=== PATIENT | female | born 1975 | race Caucasian/White ===

== ENCOUNTER 2019-08-29 21:57 | Emergency (ER) | payer BC ==
[~2019-08-29] VITALS: Ht 170.2 cm; Wt 79.4 kg
--- NOTE | 2019-08-29 22:00 | NUR ---
PT [facility] BLS. TAKEN TO BED 8
[2019-08-29 22:04] VITALS: BP 104/66
--- NOTE | 2019-08-29 22:10 | NUR ---
44 Y/O FEMALE BIBA. PRESENTS TO ED FOR MEDICAL CLEARANCE. PARENTS CALLED EMS DUE TO PT DRINKING 10 SHOTS OF AYMILEX AND TAKING 4MG OF CLONIDINE. PT HAS HX OF SI. DENIES ANY SI AT THIS TIME. DENIES ANY AUDITORY/VISUAL HALLUCINATIONS. NO SOB/DIFFICULTY BREATHING NOTED. PT DENIES ANY PAIN. PT VSS. DENIES N/V/D. ERMD AWARE. WILL CONTINUE TO MONITOR.
--- NOTE | 2019-08-29 22:15 | NUR ---
Dr. Montague examining patient.
[2019-08-29 22:35] VITALS: BP 104/66
--- NOTE | 2019-08-29 22:35 | NUR ---
PT DISCHARGED WITH PAPERWORK. EDUCATED PT REGARDING D/C DIAGNOSIS AND INSTRUCTIONS. PT VERBALIZED UNDERSTANDING OF TEACHING. TOLD PT TO FOLLOW UP WITH PCP AND WHEN TO RETURN TO ED. PT AT STABLE CONDITION. ABLE TO AMBULATE WITH STEADY GAIT. ALL QUESTIONS ANSWERED.
== END 2019-08-29 22:35 | disposition home or self-care (01) ==
LOC: MED 21:57
DX: T50.991A Poisoning by other drugs, medicaments and biological substances, accidental (unintentional), initial encounter (principal); F10.129 Alcohol abuse with intoxication, unspecified; F17.210 Nicotine dependence, cigarettes, uncomplicated; F12.10 Cannabis abuse, uncomplicated; Z90.49 Acquired absence of other specified parts of digestive tract; X58.XXXA Exposure to other specified factors, initial encounter
CPT/HCPCS: 99281

== ENCOUNTER 2022-12-16 08:19 | Inpatient (IN) | payer BC ==
[~2022-12-16] VITALS: Ht 170.2 cm; Wt 118.4 kg
[2022-12-16 08:21] VITALS: BP 116/71
--- NOTE | 2022-12-16 08:26 | NUR ---
shortness for one week with congestion, denies medical history
--- NOTE | 2022-12-16 08:30 | NUR ---
bibs for sob and cough x 1 week. tachypneic @ 24. resp even and nonlabored. speaks f/c sentences. spo2 92 %. denies n,v,d,fever, chills, dizziness. aao x4. resp even and nonlabored. vss. ambulatory
[2022-12-16] MEDS ORDERED: IPRATROPIUM 0.02% 0.5 MG/2.5 ML NEBU INH ONE (08:35)
[2022-12-16] MEDS ORDERED: methylPREDNISolone SS 125 MG/2 ML VIAL IVP ONE (08:35)
[2022-12-16] MEDS ORDERED: MAG SULF 2000 MG/WATER PREMIX 50 ML IV ONE (08:35)
[2022-12-16] MEDS ORDERED: ALBUTEROL 0.083% 2.5 MG/3 ML NEBU INH ONE (08:35)
[2022-12-16 09:17] LABS: BASOPHILS # (AUTO) 0.1 K/uL (0.00-0.22); BASOPHILS % (AUTO) 0.7 % (0.0-2.0); EOSINOPHILS # (AUTO) 0.5 K/uL (0-0.4); EOSINOPHILS % (AUTO) 6.3 % (0.0-4.0); HEMATOCRIT 38.3 % (36-48); HEMOGLOBIN 12.4 g/dL (12.0-16.0); LYMPHOCYTES # (AUTO) 1.6 K/uL (2.5-16.5); LYMPHOCYTES % (AUTO) 22.3 % (20.5-51.1); MEAN CORPUSCULAR HEMOGLOBIN 30 pg (27-31); MEAN CORPUSCULAR HGB CONC 32 g/dL (33-37); MEAN CORPUSCULAR VOLUME 94.2 fL (80-94); MONOCYTES # (AUTO) 0.4 K/uL (0.8-1.0); MONOCYTES % (AUTO) 5.5 % (1.7-9.3); NEUTROPHILS # (AUTO) 4.7 K/uL (1.8-7.7); NEUTROPHILS % (AUTO) 65.2 % (42.2-75.2); PLATELET COUNT (AUTO) 297 K/uL (140-450); RED BLOOD CELL COUNT(AUTO) 4.07 MIL/uL (4.20-5.40); RED CELL DISTRIBUTION WIDTH 14.6 % (11.6-13.7); WHITE BLOOD COUNT (AUTO) 7.2 K/uL (4.8-10.8)
--- NOTE | 2022-12-16 09:17 | NUR ---
receiving breathing tx. spo2 98 %. received meds as ordered
[2022-12-16 09:27] LABS: ALBUMIN 2.8 g/dL (3.4-5.0); ANION GAP 9.5 (8-16); CARBON DIOXIDE 34.3 mmol/L (21-32); CREATININE 0.9 mg/dL (0.6-1.3); POTASSIUM 3.8 mmol/L (3.5-5.1); TOTAL BILIRUBIN 0.5 mg/dL (0.0-1.0)
[2022-12-16] MEDS ORDERED: cefTRIAXone 2,000 MG in DEXTROSE 5% 100 ML IV ONE (09:45)
--- NOTE | 2022-12-16 09:46 | NUR ---
called lab for blood cx draw. iv atb pending
[2022-12-16] MEDS ORDERED: ESCI20TA PO (09:58)
[2022-12-16] MEDS ORDERED: QUET200T PO (09:58)
[2022-12-16] MEDS ORDERED: METH-1550 PO (09:58)
[2022-12-16] MEDS ORDERED: ATOR10TA PO (09:58)
[2022-12-16] MEDS ORDERED: GABA300C PO (09:58)
[2022-12-16] MEDS ORDERED: POTASSIUM CHLORIDE 10 MEQ TABER PO PRN (10:05)
[2022-12-16] MEDS ORDERED: ONDANSETRON 4 MG/2 ML VIAL IM/IVP PRN (10:05)
[2022-12-16] MEDS ORDERED: DOCUSATE SODIUM 100 MG GELCAP PO PRN (10:05)
[2022-12-16] MEDS ORDERED: guaiFENesin DM 200/20 MG-10 ML 10 ML UDC PO PRN (10:05)
[2022-12-16] MEDS ORDERED: ZOLPIDEM 5 MG TAB PO PRN (10:05)
[2022-12-16] MEDS ORDERED: ACETAMINOPHEN 325 MG TAB PO PRN (10:05)
[2022-12-16] MEDS ORDERED: HYDROcodone/APAP 7.5/325 MG 1 TAB PO PRN (10:05)
[2022-12-16] MEDS ORDERED: cefTRIAXone 2,000 MG VIAL ONE (10:25)
--- NOTE | 2022-12-16 10:53 | NUR ---
Patient will be admitted to care of dr. shafer. Admited to TELE. Will go to room 105b. Belongings list completed. Report to charli anson .
[2022-12-16] MEDS: IPRATROPIUM 0.02% 0.5 MG/2.5 ML NEBU INH SCH ×2 (11:00→15:57)
[2022-12-16] MEDS: ALBUTEROL 0.083% 2.5 MG/3 ML NEBU INH SCH ×4 (11:00→20:39)
--- NOTE | 2022-12-16 11:00 | NUR ---
RECEIVED PATIENT ON WHEELCHAIR AOX4 FROM ED NURSE. ASSESSMENT AND INTERVIEW COMPLETE. PLAN OF CARE ESTABLISHED.
[2022-12-16] MEDS: methylPREDNISolone SS 125 MG/2 ML VIAL IVP SCH ×2 (13:12→20:47)
--- NOTE | 2022-12-16 13:30 | NUR ---
PATIENT CLAIMS TO BE A SMOKER, 1 PACK A DAY, AND REQUESTS FOR NICOTINE PATCH. INFORMED. NEW ORDERS GIVEN.
[2022-12-16] MEDS ORDERED: NICOTINE TRANSD SYS 14 MG/24 HR PATCH TD SCH (15:39)
[2022-12-16] MEDS ORDERED: ALBUTEROL 0.083% 2.5 MG/3 ML NEBU INH PRN (15:40)
[2022-12-16 16:00] VITALS: BP 130/86
[2022-12-16] MEDS: GABAPENTIN 300 MG CAP PO SCH (17:00)
--- NOTE | 2022-12-16 18:30 | NUR ---
PATIENT AND PATIENT'S FIANCE PROVIDE [facility] FOR PATIENT AND REQUEST FOR FOLLOW UP ON MEDICATION AVAILABILITY DURING PATIENT STAY IN THE HOSPITAL. INFORMATION NOTED.
--- NOTE | 2022-12-16 19:16 | NUR ---
RECEIVED REPORT FROM DAY SHIFT NURSE FOR CONTINUITY OF CARE. PT IS AWAKE AND STABLE AT THIS TIME, FIANCE AT BEDSIDE. A&O X4. CURRENTLY ON 5L NASAL CANULA WITH NO SIGNS OF ACUTE DISTRESS AT THIS TIME. POC WAS DISCUSSED. WILL MONITOR THROUGHOUT SHIFT.
--- NOTE | 2022-12-16 19:23 | NUR ---
ENDORSED PATIENT TO PM SHIFT NURSE FOR CONTINUITY OF CARE.
--- NOTE | 2022-12-16 22:38 | NUR ---
PT COMPLAINT OF DIFFICULTY FALLING ASLEEP. AMBIEN 5MG PRN WAS ADMINISTERED. PT TOLERATED WELL, WILL CONTINUE TO MONITOR.
[2022-12-17] VITALS: BP 120/61
[2022-12-17] MEDS: IPRATROPIUM 0.02% 0.5 MG/2.5 ML NEBU INH SCH ×3 (01:00→19:32)
[2022-12-17] MEDS ORDERED: ALBUTEROL 0.083% 2.5 MG/3 ML NEBU INH SCH (01:00)
--- NOTE | 2022-12-17 02:15 | NUR ---
PT CURRENTLY ASLEEP. RESPIRATIONS EVEN AND UNLABORED, NOTICEABLE CHEST RISE AND FALL. O2 SAT = 92% ON 3L NASAL CANULA, WILL CONTINUE TO MONITOR.
[2022-12-17] MEDS: methylPREDNISolone SS 125 MG/2 ML VIAL IVP SCH ×3 (06:00→20:35)
[2022-12-17 07:48] LABS: BASOPHILS % (AUTO) 0.4 % (0.0-2.0); HEMOGLOBIN 11.7 g/dL (12.0-16.0); LYMPHOCYTES # (AUTO) 0.4 K/uL (2.5-16.5); LYMPHOCYTES % (AUTO) 3.5 % (20.5-51.1); MEAN CORPUSCULAR HEMOGLOBIN 30 pg (27-31); MEAN CORPUSCULAR HGB CONC 33 g/dL (33-37); MONOCYTES # (AUTO) 0.2 K/uL (0.8-1.0); MONOCYTES % (AUTO) 1.9 % (1.7-9.3); NEUTROPHILS # (AUTO) 11.6 K/uL (1.8-7.7); NEUTROPHILS % (AUTO) 94.2 % (42.2-75.2); PLATELET COUNT (AUTO) 298 K/uL (140-450); RED BLOOD CELL COUNT(AUTO) 3.87 MIL/uL (4.20-5.40); RED CELL DISTRIBUTION WIDTH 14.3 % (11.6-13.7); WHITE BLOOD COUNT (AUTO) 12.4 K/uL (4.8-10.8)
[2022-12-17] MEDS: ALBUTEROL 0.083% 2.5 MG/3 ML NEBU INH SCH ×2 (07:49→19:32)
[2022-12-17 08:00] VITALS: BP 127/67
[2022-12-17 08:08] LABS: ANION GAP 10.2 (8-16); CARBON DIOXIDE 31.5 mmol/L (21-32); CREATININE 0.7 mg/dL (0.6-1.3); POTASSIUM 4.7 mmol/L (3.5-5.1)
[2022-12-17 08:20] LABS: MAGNESIUM 2.3 mg/dL (1.8-2.4); PHOSPHORUS 3.5 mg/dL (2.5-4.9)
--- NOTE | 2022-12-17 08:52 | NUR ---
CALLED COREY MILLER ([phone]) [facility] AND TALK TO NURSE DUNN FOR REQUEST FAX PATIENT [facility] PRESCRIPTION INFORMATION TO [facility] FOR CONTINUE PATIENT CARE NEEDS. WILL F/U
[2022-12-17] MEDS ORDERED: COMMUNICATION ORDER MC SCH (09:00)
[2022-12-17] MEDS ORDERED: NICOTINE TRANSD SYS 7 MG/24 HR PATCH TD SCH (09:00)
[2022-12-17] MEDS: GABAPENTIN 300 MG CAP PO SCH ×3 (09:00→17:04)
--- NOTE | 2022-12-17 10:16 | NUR ---
PATIENT HAS BEEN SCREENED AND CATEGORIZED MODERATE NUTRITION RISK. PATIENT WILL BE SEEN WITHIN 3-5 DAYS OF ADMISSION. REVIEWED BY TIM NASCIMENTO RD
[2022-12-17] MEDS: AZITHROMYCIN 500 MG in DEXTROSE 5% 250 ML IV SCH (10:25)
[2022-12-17] MEDS: ATORVASTATIN 20 MG TAB PO SCH (10:40)
[2022-12-17] MEDS: ESCITALOPRAM 20 MG TAB PO SCH (10:40)
[2022-12-17] MEDS: PANTOPRAZOLE 40 MG TABEC PO SCH (10:41)
[2022-12-17] MEDS: QUEtiapine FUMARATE 100 MG TAB PO SCH ×3 (10:41→20:16)
[2022-12-17] MEDS: NICOTINE TRANSD SYS 14 MG/24 HR PATCH TD SCH (10:42)
[2022-12-17] MEDS: METHADONE 10 MG/ML PO SCH (11:58)
[2022-12-17 16:00] VITALS: BP 127/65
--- NOTE | 2022-12-17 16:33 | NUR ---
DC PLANNING A 47 YEAR OLD FEMALE PATIENT ADMITTED FOR CC: SOB,AND DIFFICULTY BREATHING.HX OF SCHIZOPHRENIA,ANXIETY ,BRONCHITIS,OPIOD DEPENDENT AND SMOKING.CXR -NORMAL .PULMO FOLLOWING.CM TO FOLLOW.. Addendum: 12/18/22 at 1205 by Rocio Bloom RN DC PLANNING RECEIVED A CALL FROM [facility] [phone] SPOKE WITH TEOFILO STATED NO NOTIFICATION SEND TO [facility]. CM CLARIFIED THAT JARRETT FROM [facility] STATED BLUE SHIELD IS AT RISK, HOWEVER [facility] RECEIVED A CLINICAL AFTER PT GOT ADMITTED AND PER TO IT WILL BE A DENIAL. CM NOTIFIED PT IS STABLE FOR TRANSFER, PER TEOFILO IF PT WILL BE DC WITH IN A DAY OR 2, NO NEED FOR TRANSFER. CM TO FOLLOW
--- NOTE | 2022-12-17 18:24 | NUR ---
RECEIVE CALL FROM RADIOLOGY THAT PATIENT IS SCHEDULE ON CT SCAN WITH CONTRAST. CONSENT OBTAINED DINNER TRAY HOLD FOR PROCEDURE. ON-CALL MD INFORMED FOR CONSENT IS READY FOR SIGNATURE. WILL CONTINUE TO MONITOR
--- NOTE | 2022-12-17 19:16 | NUR ---
ENDORSE PATIENT IN STABLE CONDITION TO PM SHIFT NURSE. PENDING CT W/ CONTRAST LATER. ON-XI MD AWARE, DINNER TRAY HOLD FOR PROCEDURE. PATIENT'S [facility] ORDER VERIFIED W/ [facility] NURSE.
--- NOTE | 2022-12-17 19:32 | NUR ---
RECEIVED REPORT FROM DAY SHIFT NURSE FOR CONTINUITY OF CARE. PT TO HAVE CT W/ CONTRAST LATER. PENDING PHYSICIAN CONSENT. RESOURCE AGENT WAS NOTIFIED AND CONSENT FORM WAS SENT BY DAY SHIFT NURSE. WILL MONITOR FREQUENTLY THROUGHOUT SHIFT.
[2022-12-17] MEDS: guaiFENesin 600 MG TABER PO SCH (20:14)
--- NOTE | 2022-12-17 20:20 | NUR ---
SCHEDULED MEDICATIONS ADMINISTERED. PT TOLERATED WELL. PT EXPRESSED CONCERNS ABOUT PENDING CT W/CONTRAST. STATED HER SCHEDULED SEROQUEL MAKES HER VERY SLEEPY AND SHE WOULD PREFER TO HAVE THE PROCEDURE IN THE MORNING. RADIOLOGY MADE AWARE. STILL AWAITING PHYSICIAN SIGNED CONSENT. WILL CONTINUE TO MONITOR.
--- NOTE | 2022-12-17 22:00 | NUR ---
Patient's Plan of Care was discussed and reviewed with KATARZYNA STARK
[2022-12-18] VITALS: BP 116/59
--- NOTE | 2022-12-18 | NUR ---
PT IS ON SLEEP. CHEST RISE AND FALL SYMMETRICALLY NOTED. RESPIRATION IS EVEN AND UNLABORED. ALL SAFETY MEASURES IMPLEMENTED. BED IN LOW POSITION, BED WHEELS ON LOCK AND CALL LIGHT WITHIN REACH. Addendum: 12/19/22 at 0231 by Susan Redmond RN WRONG DATE AND TIME
[2022-12-18] MEDS: IPRATROPIUM 0.02% 0.5 MG/2.5 ML NEBU INH SCH ×4 (02:54→19:29)
[2022-12-18] MEDS: ALBUTEROL 0.083% 2.5 MG/3 ML NEBU INH SCH ×4 (02:54→19:28)
[2022-12-18] MEDS: methylPREDNISolone SS 125 MG/2 ML VIAL IVP SCH ×3 (04:58→20:14)
--- NOTE | 2022-12-18 06:13 | NUR ---
PT STABLE AT THIS TIME. WILL ENDORSE TO DAY SHIFT NURSE FOR CONTINUITY OF CARE.
[2022-12-18 07:08] LABS: HEMATOCRIT 35.7 % (36-48); HEMOGLOBIN 11.5 g/dL (12.0-16.0); LYMPHOCYTES # (AUTO) 0.6 K/uL (2.5-16.5); LYMPHOCYTES % (AUTO) 4.2 % (20.5-51.1); MEAN CORPUSCULAR HEMOGLOBIN 30 pg (27-31); MEAN CORPUSCULAR HGB CONC 32 g/dL (33-37); MEAN CORPUSCULAR VOLUME 93.6 fL (80-94); MONOCYTES # (AUTO) 0.3 K/uL (0.8-1.0); MONOCYTES % (AUTO) 2.1 % (1.7-9.3); NEUTROPHILS # (AUTO) 13.2 K/uL (1.8-7.7); NEUTROPHILS % (AUTO) 93.7 % (42.2-75.2); PLATELET COUNT (AUTO) 276 K/uL (140-450); RED BLOOD CELL COUNT(AUTO) 3.82 MIL/uL (4.20-5.40); RED CELL DISTRIBUTION WIDTH 14.4 % (11.6-13.7); WHITE BLOOD COUNT (AUTO) 14.1 K/uL (4.8-10.8)
[2022-12-18 07:26] LABS: CARBON DIOXIDE 30.9 mmol/L (21-32); CREATININE 0.7 mg/dL (0.6-1.3); POTASSIUM 4.9 mmol/L (3.5-5.1)
--- NOTE | 2022-12-18 07:30 | NUR ---
RECEIVED REPORT FROM HOG SCALDER NURSE FOR CONTINUITY OF CARE, POC DISCUSSED. PT IS RESTING IN BED ON 2LNC WITH CHEST RISING AND FALLING EVEN AND UNLABORED. ACUTE S/S OF DISTRESS. ALL SAFETY MEASURES IN PLACE, CALL LIGHT WITHIN REACH.
[2022-12-18 07:55] LABS: MAGNESIUM 2.3 mg/dL (1.8-2.4); PHOSPHORUS 3.6 mg/dL (2.5-4.9)
[2022-12-18 08:00] VITALS: BP 128/67
[2022-12-18] MEDS: AZITHROMYCIN 500 MG in DEXTROSE 5% 250 ML IV SCH (09:00)
--- NOTE | 2022-12-18 09:16 | NUR ---
DC PLANNING ASSESSMENT COMPLETE PLEASE REFER TO ASSESSMENT FOR ADDITIONAL DETAILS PT REPORTS DC PLAN IS TO RETURN HOME WITH FAMILY PROVIDING TRANSPORATION, WHEN MEDICALLY STABLE. Addendum: 12/18/22 at 0917 by Maxwell MURPHY Amended: Links added.
[2022-12-18] MEDS ORDERED: CRUSHER, PILL MC ONE (09:19)
[2022-12-18] MEDS: PANTOPRAZOLE 40 MG TABEC PO SCH (09:23)
[2022-12-18] MEDS: guaiFENesin 600 MG TABER PO SCH ×2 (09:24→20:15)
[2022-12-18] MEDS: ATORVASTATIN 20 MG TAB PO SCH (09:24)
[2022-12-18] MEDS: NICOTINE TRANSD SYS 14 MG/24 HR PATCH TD SCH (09:25)
[2022-12-18] MEDS: METHADONE 10 MG/ML PO SCH (09:26)
[2022-12-18] MEDS: ESCITALOPRAM 20 MG TAB PO SCH (09:27)
[2022-12-18] MEDS: GABAPENTIN 300 MG CAP PO SCH ×3 (09:27→16:53)
--- NOTE | 2022-12-18 14:58 | NUR ---
DC PLANNING ADMITTED A 47 YEAR OLD FEMALE PATIENT 12/16/22 FOR COPD EXACERBATION WITH COMPLAINTS OF SOB AND DIFFICULTY BREATHING.WITH HX OF SCHIZOPHRENIA,ANXIETY,BRONCHITIS ,OPIOID DEPENDENT AND SMOKING.ON DAILY ERYTHROMYCIN.CXR/ UNREMARKABLE.CHEST/THORAX ANGIO NEGATIVE FOR PE.DC PLAN HOME WITH PENDING DISCHARGE ORDER.
[2022-12-18 16:00] VITALS: BP 126/70
--- NOTE | 2022-12-18 19:01 | NUR ---
PT ENDORSED TO BOTTOM TURNING LATHE TURNER NURSE IN STABLE CONDITION.
--- NOTE | 2022-12-18 19:02 | NUR ---
RECEIVED PT FROM MORNING SHIFT NURSE. PT IS AOX4 AMBULATORY, ABLE TO FOLLOW COMMANDS AND ABLE TO VERBALIZE NEEDS. PT IS ON 3L NC AND ON REGULAR DIET. PT HAS LEFT AC GAUGE 18, SALINE LOCK. PT SKIN IS INTACT. NO COMPLAIN OF PAIN AT THIS THIS TIME. NO S/S OF RESPIRATORY DISTRESS NOTED. ALL SAFETY MEASURES IMPLEMENTED. BED IN LOW POSITION, BED WHEELS ON LOCK AND CALL LIGHT WITHIN REACH.
[2022-12-18] MEDS: QUEtiapine FUMARATE 100 MG TAB PO SCH (20:15)
--- NOTE | 2022-12-18 20:15 | NUR ---
ALL SCHEDULED AND PRESCRIBED MEDICATION WAS GIVEN TO PT PER MD ORDER. ALL SAFETY MEASURES IMPLEMENTED. BED IN LOW POSITION, BED WHEELS ON LOCK AND CALL LIGHT WITHIN REACH.
[2022-12-19] VITALS: BP 106/55
--- NOTE | 2022-12-19 | NUR ---
PT IS ON SLEEP. CHEST RISE AND FALL SYMMETRICALLY NOTED. RESPIRATION IS EVEN AND UNLABORED. ALL SAFETY MEASURES IMPLEMENTED. BED IN LOW POSITION, BED WHEELS ON LOCK AND CALL LIGHT WITHIN REACH.
[2022-12-19] MEDS: ALBUTEROL 0.083% 2.5 MG/3 ML NEBU INH SCH ×4 (01:00→19:19)
[2022-12-19] MEDS: IPRATROPIUM 0.02% 0.5 MG/2.5 ML NEBU INH SCH ×4 (01:00→19:19)
--- NOTE | 2022-12-19 02:00 | NUR ---
CHECKED THE PT, STILL ON SLEEP. CHEST RISE AND FALL SYMMETRICALLY NOTED. RESPIRATION IS EVEN AND UNLABORED. ALL SAFETY MEASURES IMPLEMENTED. BED IN LOW POSITION, BED WHEELS ON LOCK AND CALL LIGHT WITHIN REACH.
--- NOTE | 2022-12-19 04:00 | NUR ---
PUT THE PT BACK ON 3L NC DURE TO PT SATING AT 88-89%. NOW PT IS SATING AT 95% ALL SAFETY MEASURES IMPLEMENTED. BED IN LOW POSITION, BED WHEELS ON LOCK AND CALL LIGHT WITHIN REACH.
[2022-12-19] MEDS: methylPREDNISolone SS 125 MG/2 ML VIAL IVP SCH (04:34)
[2022-12-19 06:42] LABS: HEMATOCRIT 34.9 % (36-48); HEMOGLOBIN 11.3 g/dL (12.0-16.0); LYMPHOCYTES # (AUTO) 0.6 K/uL (2.5-16.5); LYMPHOCYTES % (AUTO) 5.4 % (20.5-51.1); MEAN CORPUSCULAR HEMOGLOBIN 30 pg (27-31); MEAN CORPUSCULAR HGB CONC 32 g/dL (33-37); MEAN CORPUSCULAR VOLUME 93.1 fL (80-94); MONOCYTES # (AUTO) 0.3 K/uL (0.8-1.0); NEUTROPHILS # (AUTO) 10.6 K/uL (1.8-7.7); NEUTROPHILS % (AUTO) 91.6 % (42.2-75.2); PLATELET COUNT (AUTO) 255 K/uL (140-450); RED BLOOD CELL COUNT(AUTO) 3.75 MIL/uL (4.20-5.40); RED CELL DISTRIBUTION WIDTH 14.4 % (11.6-13.7); WHITE BLOOD COUNT (AUTO) 11.5 K/uL (4.8-10.8)
[2022-12-19 06:53] LABS: ANION GAP 10.3 (8-16); CARBON DIOXIDE 32.3 mmol/L (21-32); CREATININE 0.7 mg/dL (0.6-1.3); POTASSIUM 4.6 mmol/L (3.5-5.1)
[2022-12-19 07:00] LABS: MAGNESIUM 2.3 mg/dL (1.8-2.4); PHOSPHORUS 3.2 mg/dL (2.5-4.9)
--- NOTE | 2022-12-19 07:08 | NUR ---
PT IS STABLE. ENDORSED PT TO MORNING SHIFT NURSE FOR CONTINUITY OF CARE.
--- NOTE | 2022-12-19 07:30 | NUR ---
RECEIVED REPORT FROM TAX COMPLIANCE REPRESENTATIVE NURSE, ALL NIGHT EVENTS DISCUSSED. REPORTED PT DESATURATES ON ROOM AIR WHEN SLEEPING, PT CURRENTLY RESTING IN BED WITH CHEST RISING AND FALLING EVEN AND UNLABORED. NO S/S OF DISTRESS. ALL SAFETY MEASURES IN PLACE, CALL LIGHT WITHIN REACH.
[2022-12-19 08:00] VITALS: BP 136/61
[2022-12-19] MEDS: AZITHROMYCIN 500 MG in DEXTROSE 5% 250 ML IV SCH (09:00)
[2022-12-19] MEDS: ESCITALOPRAM 20 MG TAB PO SCH (09:06)
[2022-12-19] MEDS: PANTOPRAZOLE 40 MG TABEC PO SCH (09:06)
[2022-12-19] MEDS: guaiFENesin 600 MG TABER PO SCH ×2 (09:06→20:08)
[2022-12-19] MEDS: ATORVASTATIN 20 MG TAB PO SCH (09:06)
[2022-12-19] MEDS: GABAPENTIN 300 MG CAP PO SCH ×3 (09:07→17:03)
[2022-12-19] MEDS: NICOTINE TRANSD SYS 14 MG/24 HR PATCH TD SCH (09:08)
[2022-12-19] MEDS: METHADONE 10 MG/ML PO SCH (09:09)
[2022-12-19 16:00] VITALS: BP 121/73
--- NOTE | 2022-12-19 19:20 | NUR ---
RECEIVED PT FROM MORNING SHIFT NURSE. PT IS AOX4 AMBULATORY, ABLE TO FOLLOW COMMANDS AND ABLE TO VERBALIZE NEEDS. PT IS ON ROOM AND ON REGULAR DIET. PT HAS LEFT AC GAUGE 18, SALINE LOCK. PT SKIN IS INTACT. NO COMPLAIN OF PAIN AT THIS THIS TIME. NO S/S OF RESPIRATORY DISTRESS NOTED. ALL SAFETY MEASURES IMPLEMENTED. BED IN LOW POSITION, BED WHEELS ON LOCK AND CALL LIGHT WITHIN REACH.
[2022-12-19] MEDS: QUEtiapine FUMARATE 100 MG TAB PO SCH (20:09)
--- NOTE | 2022-12-19 22:00 | NUR ---
WARM BLANKET WAS GIVEN TO PT. NO S/S OF RESPIRATORY DISTRESS NOTED. ALL SAFETY MEASURES IMPLEMENTED. BED IN LOW POSITION, BED WHEELS ON LOCK AND CALL LIGHT WITHIN REACH.
[2022-12-20] VITALS: BP 131/68
--- NOTE | 2022-12-20 | NUR ---
CHANGED PT'S DIAPER AND LINEN. PT WAS ALSO TURNED TO OTHER SIDE. NO S/S OF RESPIRATORY DISTRESS NOTED. ALL SAFETY MEASURES IMPLEMENTED. BED IN LOW POSITION, BED WHEELS ON LOCK AND CALL LIGHT WITHIN REACH. Addendum: 12/20/22 at 0410 by Susan Redmond RN WRONG PT.
[2022-12-20] MEDS: ALBUTEROL 0.083% 2.5 MG/3 ML NEBU INH SCH ×3 (01:00→12:33)
[2022-12-20] MEDS: IPRATROPIUM 0.02% 0.5 MG/2.5 ML NEBU INH SCH ×3 (01:00→12:32)
--- NOTE | 2022-12-20 02:00 | NUR ---
PT IS ON SLEEP. CHEST RISE AND FALL SYMMETRICALLY NOTED. RESPIRATION IS EVEN AND UNLABORED. NO S/S OF RESPIRATORY DISTRESS NOTED. ALL SAFETY MEASURES IMPLEMENTED. BED IN LOW POSITION, BED WHEELS ON LOCK AND CALL LIGHT WITHIN REACH.
--- NOTE | 2022-12-20 04:00 | NUR ---
CHECKED THE PT, STILL ON SLEEP. CHEST RISE AND FALL SYMMETRICALLY NOTED. RESPIRATION IS EVEN AND UNLABORED. NO S/S OF RESPIRATORY DISTRESS NOTED. ALL SAFETY MEASURES IMPLEMENTED. BED IN LOW POSITION, BED WHEELS ON LOCK AND CALL LIGHT WITHIN REACH.
[2022-12-20 07:02] LABS: BASOPHILS % (AUTO) 0.1 % (0.0-2.0); EOSINOPHILS % (AUTO) 0.2 % (0.0-4.0); HEMATOCRIT 35.3 % (36-48); HEMOGLOBIN 11.5 g/dL (12.0-16.0); LYMPHOCYTES # (AUTO) 1.8 K/uL (2.5-16.5); LYMPHOCYTES % (AUTO) 19.4 % (20.5-51.1); MEAN CORPUSCULAR HEMOGLOBIN 30 pg (27-31); MEAN CORPUSCULAR HGB CONC 33 g/dL (33-37); MEAN CORPUSCULAR VOLUME 93.2 fL (80-94); MONOCYTES # (AUTO) 0.7 K/uL (0.8-1.0); MONOCYTES % (AUTO) 7.2 % (1.7-9.3); NEUTROPHILS # (AUTO) 6.6 K/uL (1.8-7.7); NEUTROPHILS % (AUTO) 73.1 % (42.2-75.2); PLATELET COUNT (AUTO) 227 K/uL (140-450); RED BLOOD CELL COUNT(AUTO) 3.79 MIL/uL (4.20-5.40); RED CELL DISTRIBUTION WIDTH 14.4 % (11.6-13.7); WHITE BLOOD COUNT (AUTO) 9.1 K/uL (4.8-10.8)
--- NOTE | 2022-12-20 07:19 | NUR ---
PT IS STABLE. ENDORSED PT TO MORNING SHIFT NURSE FOR CONTINUITY OF CARE.
[2022-12-20 08:46] LABS: PHOSPHORUS 2.9 mg/dL (2.5-4.9)
[2022-12-20] MEDS ORDERED: predniSONE 20 MG TAB PO SCH (09:00)
[2022-12-20 09:14] LABS: ANION GAP 11.3 (8-16); CARBON DIOXIDE 31.1 mmol/L (21-32); CREATININE 0.7 mg/dL (0.6-1.3); POTASSIUM 3.4 mmol/L (3.5-5.1)
[2022-12-20 10:39] VITALS: BP 124/75
[2022-12-20] MEDS ORDERED: PRED20TA5 PO (11:50)
[2022-12-20] MEDS ORDERED: LEVO-481 PO (11:50)
[2022-12-20] MEDS ORDERED: ATRMDI IH (11:51)
[2022-12-20] MEDS ORDERED: ALBU0.0912 INH (11:51)
--- NOTE | 2022-12-20 20:40 | NUR ---
0800 RECEIVED IN NO ACUTE DISTRESS. pT STABLE, ALL SAFETY MEASURES IN PLACE. DENIES DISCOMFORT
--- NOTE | 2022-12-20 20:41 | NUR ---
1435 PATIENT DISCHARGED AT THIS TIME D/C TEACHING GIVEN AND EXPRESSED UNDERSTANDING. sPOUSE HERE AND ACCOMPANIED PATIENT.
== END 2022-12-20 13:15 | disposition home or self-care (01) | DRG 720 ==
LOC: MED 08:19 → MTU 10:07
PROVIDERS: ADMIT Student in an Organized Health Care Education/Training Program; ATTEND Student in an Organized Health Care Education/Training Program
DX: A41.9 Sepsis, unspecified organism (principal); J96.00 Acute respiratory failure, unspecified whether with hypoxia or hypercapnia; E44.0 Moderate protein-calorie malnutrition; J44.0 Chronic obstructive pulmonary disease with (acute) lower respiratory infection; J18.9 Pneumonia, unspecified organism; E83.51 Hypocalcemia; F25.1 Schizoaffective disorder, depressive type; J44.1 Chronic obstructive pulmonary disease with (acute) exacerbation; F11.20 Opioid dependence, uncomplicated; J20.9 Acute bronchitis, unspecified; D64.9 Anemia, unspecified; Z68.41 Body mass index [BMI] 40.0-44.9, adult; F41.9 Anxiety disorder, unspecified; E78.5 Hyperlipidemia, unspecified; J43.9 Emphysema, unspecified; D72.829 Elevated white blood cell count, unspecified; Z90.49 Acquired absence of other specified parts of digestive tract; Z20.822 Contact with and (suspected) exposure to COVID-19; Z72.0 Tobacco use
CPT/HCPCS: 36415; 71045; 71275; 80048; 80053; 83735; 83880; 84100; 84484; 85025; 87081; 93005; 94640; 96374; 96375; 99285; J0456; J0696; J2930; J3475; J7060; J7512; J7613; J7644; Q0092; Q9967

== ENCOUNTER 2023-04-23 20:56 | Inpatient (IN) | payer BC ==
[~2023-04-23] VITALS: Ht 172.7 cm; Wt 117.9 kg
[~2023-04-23 20:56] MED LIST: ALBU0.0912 INH; ATOR10TA PO; ATRMDI IH; ESCI20TA PO; GABA300C PO; LEVO-481 PO; METH-1550 PO; PRED20TA5 PO; QUET200T PO
[2023-04-23 21:00] VITALS: BP 109/71; PULSE 115; RESP 17; TEMP 98; O2SAT 77
[2023-04-23] MEDS ORDERED: IPRATROPIUM 0.02% 0.5 MG/2.5 ML NEBU INH ONE (21:15)
[2023-04-23] MEDS ORDERED: methylPREDNISolone SS 125 MG/2 ML VIAL IVP ONE (21:15)
[2023-04-23] MEDS ORDERED: ALBUTEROL 0.083% 2.5 MG/3 ML NEBU INH ONE (21:15)
[2023-04-23 21:23] VITALS: PULSE 100; RESP 20; O2SAT 92; O2SAT 93
[2023-04-23 21:43] LABS: HEMATOCRIT 39.3 % (36-48); HEMOGLOBIN 12.7 g/dL (12.0-16.0); MEAN CORPUSCULAR HEMOGLOBIN 30 pg (27-31); MEAN CORPUSCULAR HGB CONC 32 g/dL (33-37); PLATELET COUNT (AUTO) 281 K/uL (140-450); RED BLOOD CELL COUNT(AUTO) 4.23 MIL/uL (4.20-5.40); WHITE BLOOD COUNT (AUTO) 9.2 K/uL (4.8-10.8)
[2023-04-23 21:52] LABS: CALCIUM 8.2 mg/dL (8.5-10.1); CARBON DIOXIDE 32.5 mmol/L (21-32); POTASSIUM 4.5 mmol/L (3.5-5.1)
[2023-04-23 21:53] LABS: BASOPHILS % (MANUAL) 0 % (0-2); EOSINOPHILS % (MANUAL) 0 % (0-4); LYMPHOCYTES % (MANUAL) 9 % (20-46); MONOCYTES % (MANUAL) 3 % (5-12); SMUDGE CELLS FEW
[2023-04-23 22:06] VITALS: RESP 20; O2SAT 99
[2023-04-24] VITALS (16 sets, daily range): BP systolic 111–149; BP diastolic 64–87; PULSE 53–97; RESP 16–22; TEMP 97.3–98.6; O2SAT 84–98
[2023-04-24] MEDS ORDERED: cefTRIAXone 1,000 MG VIAL ONE (00:32)
[2023-04-24] MEDS ORDERED: HYDROcodone/APAP 7.5/325 MG 1 TAB PO PRN (01:10)
[2023-04-24] MEDS ORDERED: ONDANSETRON 4 MG/2 ML VIAL IM/IVP PRN (01:10)
[2023-04-24] MEDS ORDERED: ZOLPIDEM 5 MG TAB PO PRN (01:10)
[2023-04-24] MEDS ORDERED: POTASSIUM CHLORIDE 10 MEQ TABER PO PRN (01:10)
[2023-04-24] MEDS ORDERED: guaiFENesin DM 200/20 MG-10 ML 10 ML UDC PO PRN (01:10)
[2023-04-24] MEDS ORDERED: DOCUSATE SODIUM 100 MG GELCAP PO PRN (01:10)
[2023-04-24] MEDS ORDERED: ACETAMINOPHEN 325 MG TAB PO PRN (01:10)
[2023-04-24 01:45] LABS: APPEARANCE,URINE CLOUDY (CLEAR); BILIRUBIN,URINE NEGATIVE (NEGATIVE); BLOOD, URINE 3+ (NEGATIVE); COLOR,URINE YELLOW (YELLOW); LEUKOCYTE ESTERASE ,URINE NEGATIVE (NEGATIVE); NITRITE, URINE NEGATIVE (NEGATIVE); PROTEIN,URINE 2+ (NEGATIVE); UGLUCOSE NEGATIVE (NEGATIVE); UROBILINOGEN,URINE 0.2 EU/dL (0.2 - 1)
[2023-04-24 01:54] LABS: BACTERIA,URINE >30 (MANY) /HPF (None Seen); WBC,URINE 0-5 /HPF (0-5)
[2023-04-24 01:55] LABS: MUCUS,URINE 1+ /LPF (None Seen); SQUAMOUS EPITHELIAL CELL,UR 4-10 (MOD) /LPF (0-3 (FEW))
[2023-04-24 02:25] LABS: AMPHETAMINE, URINE NEGATIVE ng/ml (NEG <=1000); BARBITURATE, URINE NEGATIVE ng/ml (NEG <=200); BENZODIAZEPINE, URINE POSITIVE ng/mL (NEG <=200); COCAINE, URINE POSITIVE ng/mL (NEG <=300)
[2023-04-24 02:26] LABS: CANNABINOID, URINE NEGATIVE ng/mL (NEG <=50); OPIATE, URINE NEGATIVE ng/mL (NEG <=2000); PHENCYCLIDINE SCREEN,URINE NEGATIVE ng/mL (NEG <=25)
[2023-04-24 05:13] LABS: BASOPHILS % (AUTO) 0.2 % (0.0-2.0); HEMATOCRIT 38.2 % (36-48); HEMOGLOBIN 12.4 g/dL (12.0-16.0); LYMPHOCYTES # (AUTO) 0.6 K/uL (2.5-16.5); LYMPHOCYTES % (AUTO) 6.5 % (20.5-51.1); MEAN CORPUSCULAR HEMOGLOBIN 30 pg (27-31); MEAN CORPUSCULAR HGB CONC 33 g/dL (33-37); MEAN CORPUSCULAR VOLUME 92.8 fL (80-94); MONOCYTES # (AUTO) 0.1 K/uL (0.8-1.0); MONOCYTES % (AUTO) 1.2 % (1.7-9.3); NEUTROPHILS # (AUTO) 8.2 K/uL (1.8-7.7); NEUTROPHILS % (AUTO) 92.1 % (42.2-75.2); PLATELET COUNT (AUTO) 242 K/uL (140-450); RED BLOOD CELL COUNT(AUTO) 4.11 MIL/uL (4.20-5.40); RED CELL DISTRIBUTION WIDTH 15.8 % (11.6-13.7); WHITE BLOOD COUNT (AUTO) 8.9 K/uL (4.8-10.8)
[2023-04-24] MEDS: NACL 0.9% 1,000 ML IV SCH ×2 (05:25→17:48)
[2023-04-24 05:51] LABS: ANION GAP 12.1 (8-16); CALCIUM 8.3 mg/dL (8.5-10.1); CARBON DIOXIDE 31.9 mmol/L (21-32); TOTAL BILIRUBIN 0.3 mg/dL (0.0-1.0); TOTAL PROTEIN, SERUM 6.8 g/dL (6.4-8.2)
[2023-04-24] MEDS: LEVOFLOXACIN 500 MG/D5W PREMIX 100 ML IV SCH (09:18)
[2023-04-24] MEDS: DEXAMETHASONE 4 MG/ML VIAL IVP SCH (09:21)
[2023-04-24] MEDS: PANTOPRAZOLE 40 MG TABEC PO SCH (09:21)
[2023-04-24] MEDS ORDERED: AZIT250T4 PO (10:19)
[2023-04-24] MEDS ORDERED: PRED20TA5 PO (10:19)
[2023-04-24] MEDS ORDERED: ALBU3SOL83 IH (10:19)
[2023-04-24] MEDS: ALBUTEROL SULFATE/IPRATROPIU 3 ML SOL IH SCH ×4 (10:25→22:56)
[2023-04-24] MEDS: METHADONE HCL ORAL SOLN 10 MG/ML SOLN PO SCH (11:13)
[2023-04-25] VITALS (7 sets, daily range): BP systolic 145–147; BP diastolic 85–91; PULSE 60–74; RESP 17–20; TEMP 96.8–97.5; O2SAT 85–100
[2023-04-25] MEDS: ALBUTEROL SULFATE/IPRATROPIU 3 ML SOL IH SCH ×3 (02:13→12:35)
[2023-04-25 04:46] LABS: BASOPHILS % (AUTO) 0.1 % (0.0-2.0); HEMATOCRIT 35.3 % (36-48); HEMOGLOBIN 11.4 g/dL (12.0-16.0); LYMPHOCYTES # (AUTO) 0.9 K/uL (2.5-16.5); LYMPHOCYTES % (AUTO) 7.6 % (20.5-51.1); MEAN CORPUSCULAR HEMOGLOBIN 30 pg (27-31); MEAN CORPUSCULAR HGB CONC 32 g/dL (33-37); MEAN CORPUSCULAR VOLUME 93.2 fL (80-94); MONOCYTES # (AUTO) 0.9 K/uL (0.8-1.0); MONOCYTES % (AUTO) 7.5 % (1.7-9.3); NEUTROPHILS # (AUTO) 9.7 K/uL (1.8-7.7); NEUTROPHILS % (AUTO) 84.8 % (42.2-75.2); PLATELET COUNT (AUTO) 262 K/uL (140-450); RED BLOOD CELL COUNT(AUTO) 3.79 MIL/uL (4.20-5.40); RED CELL DISTRIBUTION WIDTH 16.6 % (11.6-13.7); WHITE BLOOD COUNT (AUTO) 11.5 K/uL (4.8-10.8)
[2023-04-25 05:24] LABS: ANION GAP 7.8 (8-16); CALCIUM 8.3 mg/dL (8.5-10.1); CARBON DIOXIDE 35.4 mmol/L (21-32); CREATININE 0.7 mg/dL (0.6-1.3); POTASSIUM 4.2 mmol/L (3.5-5.1); TOTAL BILIRUBIN 0.2 mg/dL (0.0-1.0); TOTAL PROTEIN, SERUM 6.4 g/dL (6.4-8.2)
[2023-04-25] MEDS: PANTOPRAZOLE 40 MG TABEC PO SCH (08:21)
[2023-04-25] MEDS: METHADONE HCL ORAL SOLN 10 MG/ML SOLN PO SCH (08:29)
[2023-04-25] MEDS ORDERED: AZITHROMYCIN 250 MG TAB PO SCH (09:00)
[2023-04-25] MEDS ORDERED: NICOTINE TRANSD SYS 21 MG/24 HR PATCH TD SCH (09:00)
[2023-04-25] MEDS: LEVOFLOXACIN 500 MG/D5W PREMIX 100 ML IV SCH (10:16)
[2023-04-25] MEDS: DEXAMETHASONE 4 MG/ML VIAL IVP SCH (10:17)
[2023-04-25] MEDS ORDERED: FLUT1BLS3 IH (11:24)
== END 2023-04-25 13:50 | disposition home or self-care (01) | DRG 140 ==
LOC: MED 20:56 → MTU 04-24 01:18
PROVIDERS: ADMIT Student in an Organized Health Care Education/Training Program; ATTEND Student in an Organized Health Care Education/Training Program
DX: J44.1 Chronic obstructive pulmonary disease with (acute) exacerbation (principal); J96.00 Acute respiratory failure, unspecified whether with hypoxia or hypercapnia; E44.0 Moderate protein-calorie malnutrition; I24.8 Other forms of acute ischemic heart disease; R65.10 Systemic inflammatory response syndrome (SIRS) of non-infectious origin without acute organ dysfunction; I73.9 Peripheral vascular disease, unspecified; L30.4 Erythema intertrigo; F11.90 Opioid use, unspecified, uncomplicated; F15.90 Other stimulant use, unspecified, uncomplicated; J45.909 Unspecified asthma, uncomplicated; Z68.39 Body mass index [BMI] 39.0-39.9, adult
CPT/HCPCS: 36415; 71045; 80048; 80053; 80305; 81001; 82803; 84484; 85025; 87040; 87081; 87086; 93005; 94640; 96365; 96375; 99291; J0696; J1100; J1956; J2930; J7613; J7644